=== PATIENT | female | born 2000 | race Caucasian/White ===

== ENCOUNTER 2021-07-12 18:35 | Emergency (ER) | payer OTHER, SELFPAY ==
--- NOTE | 2021-07-12 18:49 | XR_ITS ---
PROCEDURE INFORMATION: Exam: XR Left Ankle Exam date and time: 07/12/21 06:50 PM Age: 21 years old Clinical indication: Pain; Ankle; Left; Additional info: Skateboarding accident TECHNIQUE: Imaging protocol: XR Left ankle. Views: 3 or more views. COMPARISON: No relevant prior studies available. FINDINGS: Bones/joints: Nondisplaced fracture of the low fibula. Nondisplaced fracture of the posterior malleolus. Soft tissues: Soft tissue swelling over both the medial and lateral malleoli. IMPRESSION: 1. Nondisplaced fracture of the low fibula. 2. Nondisplaced fracture of the posterior malleolus. 3. Prominent soft tissue swelling of the entire ankle.
[2021-07-12 19:05] VITALS: BP 105/58; PULSE 80; RESP 20; TEMP 36.7; O2SAT 100; BMI 19.2
--- NOTE | 2021-07-12 19:59 | HMH.EDUTC ---
[facility] [place] Disposition Clinical Impression: Ankle fracture, left Qualifiers: Encounter type: initial encounter Fracture type: closed Qualified Code(s): S82.892A - Other fracture of left lower leg, initial encounter for closed fracture Disposition: Home, Self-Care Condition on Discharge: Good Instructions: How to Use Crutches, Ankle Fracture, DI for Ankle Fracture, How To Perform RICE (Rest, Ice, Compress, Elevate) Additional Instructions: No weight bearing *RICE, Rest the extremity, Ice 15-20 minutes 3-4 times daily, Compress- wear the danita wrap as discussed as much as possible to help reduce swelling and pain, Elevate the extremity when at rest *Orthoglass splint is for support and help control swelling, Be sure that is not to tight but not to loose either *Elevate when resting *Ibuprofen 600mg every 6-8 hours as needed for pain an inflammation. If need something more can take Tylenol in between doses of Ibuprofen to help Immediately follow up with your family doctor for new or worsening of symptoms, or no noticeable improvement over the next 3-5 days Call Orthopedics office in the morning and ask for appointment on 07/13/[address] Buenrostro with [facility] for [facility] and then follow further instructions per Orthopedic office Return if needed Straight to ER if any life threatening symptoms Prescriptions: Ibuprofen [Ibuprofen 600mg Tablet] 600 mg PO Q6HP PRN #20 tab PRN Reason: Moderate Pain Transmission Status: Pending to [id number] Referrals: Provider,MD Kizzy [Primary Care Provider] - As needed Jelani Buenrostro JR, MD [Physician] - (Call office in the morning for appointment request same day appointment with [facility] then follow up as directed) Forms: Work/School Release Time of Disposition: 20:26 Medical Decision Making - Familia Inquiry Pt receiving controlled substance: No Familia was queried for this patient: No Vital Signs: 07/12/21 19:05 07/12/21 20:13 Temperature 98.0 F 98.0 F Temperature Source Oral Pulse Rate 80 Pulse Rate [Left Brachial] 80 Respiratory Rate 20 20 Blood Pressure 105/58 L Blood Pressure [Left Arm] 105/58 L Blood Pressure Mean [Left Arm] 73 Blood Pressure Source [Left Arm] Automatic Cuff Blood Pressure Position [Left Arm] Sitting 02 Sat by Pulse Oximetry 100 Oxygen Delivery Method Room Air - Lab Data Lab Results 07/12/21 20:15: Tst Clinic Negative - Radiology Data #1 Image(s): Ankle Image Reviewed: Yes I have reviewed radiologist's interpretation IMPRESSION: 1. Nondisplaced fracture of the low fibula. 2. Nondisplaced fracture of the posterior malleolus. 3. Prominent soft tissue swelling of the entire ankle. - Physician Consults Physician Consulted: Dr Buenrostro Time: 20:00 Reason -: Orthopedic Eval/Care Comment/Response: Spoke with Dr Buenrostro he advised short leg splint, crutches and follow up in the office tomorrow with [facility] for CT and they will discuss further with her tomorrow [facility] [place] HPI - General Stated complaint: AO 07/12@1700 fellInjrued L ankle Time Seen by Provider: 07/12/21 19:40 Mode of Arrival: Ambulatory Source of Information: Patient Limitations: No Limitations Description of Symptoms (Recalled from Triage Doc. by RN): PATIENT C/O INJURY TO LEFT ANKLE AFTER FALLING WHILE SKATEBOARDING TODAY. SWELLING NOTED TO AREA HEENT Symptoms (Recalled from RN notes): No Resp Symptoms (Recalled from RN notes): No Skin Symptoms (Recalled from RN notes): No MS Symptoms (Recalled from RN notes): Yes Functional Status (Recalled from RN notes): WNL - History of Present Illness Provider Complaint: Patient state that she was skateboarding earlier when she fell and bended her foot and ankle behind her States that she felt a pop and has been having pain with movement and swelling ever since Denies any other injury denies numbness able to move toes - Related Data Previous Rx's Medication Instructions Recorded Ibuprofen
[2021-07-12 20:13] VITALS: BP 105/58; PULSE 80; RESP 20; TEMP 36.7; O2SAT 100
[2021-07-12 20:21] LABS: UTC Pregnancy Test, Urine Negative (Negative)
== END 2021-07-12 20:36 | disposition home or self-care (01) ==
PROVIDERS: Emergency Provider Nurse Practitioner
DX: S82.892A Other fracture of left lower leg, initial encounter for closed fracture (principal); V00.131A Fall from skateboard, initial encounter
CPT/HCPCS: 73610; 81025; 99212; G0463

== ENCOUNTER → 2021-07-13 13:48 | Outpatient (CLI) | payer OTHER, SELFPAY ==
--- NOTE | 2021-07-13 14:00 | CT_ITS ---
FINAL REPORT CLINICAL HISTORY: LEFT ANKLE FX FINDINGS: CT LEFT ANKLE WITHOUT CONTRAST Technique: Axial images through the left ankle were performed by computed tomography. Sagittal and coronal reconstruction images were performed. This study was performed with techniques to keep radiation doses as low as reasonably achievable (ALARA). Individualized dose reduction techniques using automated exposure control or adjustment of mA and/or kV according to the patient's size were employed. There is a mildly displaced lateral malleolar fracture. There is posterior dislocation of the distal fragment of approximately 2 mm. There is a minimally displaced posterior malleolar fracture with offset at the articular surface approximately 1-2 mm. A tiny calcification adjacent to the medial talus could represent a small avulsion from the talus. The talar dome is intact. There is widening of the medial ankle mortise. There is significant soft tissue edema. A small joint effusion is present. IMPRESSION: Fractures of the posterior and lateral malleoli as described. Widening of the medial ankle mortise suggesting ligamentous abnormality. Reviewed, Interpreted and Dictated by Jayde Mcfarland MD Transcribed by Dannie Thomas Authenticated by Jayde Mcfarland MD on 07/13/2021 04:53:03 PM [facility]
[2021-07-13 17:40] LABS: Basophils # 0.3 K/mm3 (0-0.2); Basophils % 3.7 % (0.1-2.0); Eosinophils # 0.2 K/mm3 (0.0-0.4); Eosinophils % 1.9 % (0.1-12.0); Hemoglobin 13.1 g/dL (12.2-16.2); Lymphocytes # 1.4 K/mm3 (0.7-4.5); Lymphocytes % 15.1 % (10-50); Mean Corpuscular HGB Conc 34.4 g/dL (31.8-35.4); Mean Corpuscular Hemoglobin 31.3 pg (27.0-31.2); Mean Corpuscular Volume 91.1 fl (81-99); Mean Platelet Volume 9.4 fl (7.4-10.4); Monocytes # 0.7 K/mm3 (0.1-1.0); Monocytes % 7.3 % (1.7-9.3); Neutrophils # 6.7 K/mm3 (1.8-7.8); Neutrophils % 72.1 % (37.0-80.0); Platelet Count 369 K/mm3 (142-424); Red Blood Count 4.17 M/mm3 (4.20-5.40); Red Cell Distribution Width 12.7 % (11.5-17.5); White Blood Count 9.3 K/mm3 (4.5-13.0)
[2021-07-13 17:51] LABS: Alanine Aminotransferase 26 U/L (12-78); Albumin Level 3.9 g/dl (3.5-5.0); Albumin/Globulin Ratio 1.8 (1.1-1.8); Alkaline Phosphatase 85 U/L (38-126); Anion Gap 12.1 mEq/L (5-15); Aspartate Amino Transferase 29 U/L (14-36); Blood Urea Nitrogen 10 mg/dl (7-17); Calcium 8.7 mg/dl (8.4-10.2); Carbon Dioxide 29 mmol/L (22.0-30.0); Chloride 105 mmol/L (98-107); Estimated Glomerular Filt Rate 91 ml/min (>60); GFR (African American) 111 ML/MIN (>60); Globulin 2.2 g/dL (1.3-3.2); Glucose 92 mg/dl (74-100); Potassium 4.1 mmoL/L (3.5-5.1); Sodium 142 mmol/L (136-145); Total Protein,Serum 6.1 g/dl (6.3-8.2)
[2021-07-13 17:57] LABS: Bilirubin,Total < 0.1 mg/dl (0.2-1.3)
[2021-07-13 17:58] LABS: HCG Qualitative, Serum Negative (Negative)
== END ==
PROVIDERS: Physician Assistant Surgical; Visit Provider Orthopaedic Surgery
DX: Z01.818 Encounter for other preprocedural examination (principal); Z20.822 Contact with and (suspected) exposure to COVID-19; S82.892A Other fracture of left lower leg, initial encounter for closed fracture
CPT/HCPCS: 73700; 80053; 84703; 85025; C9803; U0003; U0005

== ENCOUNTER 2021-07-15 12:50 | Day surgery (SDC) | payer OTHER, SELFPAY ==
[2021-07-15] VITALS (11 sets, daily range): BP systolic 103–130; BP diastolic 62–75; PULSE 66–107; RESP 16–18; TEMP 36.6–43; O2SAT 98–99; BMI 19.2
--- NOTE | 2021-07-15 15:10 | HMH.ORTHHP ---
*Admission Date: 07/15/21 *Reason for consult:: left ankle fracture *History of present illness: 21-year-old female was skateboarding at the [employer] on Sunday, fell, externally rotated her left ankle, complained of immediate pain and difficulty ambulating. Says she feels like her ankle dislocated and spontaneously reduced. She showed me a video of the incident, and it looks like her foot was turned roughly 90 degrees relative to the axis of the tibia. She was seen in the urgent treatment center and subsequently was seen by Rochelle Og PA-C in our clinic earlier this week. I was able to remotely review the images, and tentatively recommended operative fixation. I saw her again this afternoon in preoperative holding. Minimal pain. She is quite active, likes to skateboard and exercise. 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 [facility] History Medical History: Reports:: Seizures (1 YEAR AGO) Denies:: Cancer, Diabetes Mellitus Type 1, Diabetes Mellitus Type 2, Internal Pacemaker, MRSA *Have you ever received a pneumonia vaccine?: No *Have you received a flu vaccine this season?: No Other Medical History: Denies: Blood Transfusion Reaction Other Surgeries: No: Pacemaker Amputation: No Fractures: No - *Social History Last grade of school completed: High school graduate Smoking Status: Current every day smoker Tobacco Type: cigarettes, e-cigarettes # Packs/Day (cigarettes): 1 Alcohol Intake: current Alcohol Intake Frequency:: holidays/special occasions only Substance Use Type: marijuana Last Used Substance: days (ago) *Occupational Status:: employed Housing: house Household Members: family *Travel in the last 8 weeks: None Family Hx:: Anemia, Cancer, Coronary Artery Disease, Diabetes, Heart Attack, Hyperlipidemia, Hypertension, Stroke, Thyroid Disorder Review of Systems - Review of Systems Review of systems:: pertinent systems reviewed and negative unless documented below - *Cardiovascular Denies chest pain, Denies shortness of breath with activity - *Respiratory Denies chest congestion, Denies cough, Denies shortness of breath - *Gastrointestinal Denies abdominal pain, Denies change in bowel habits - *Genitourinary Denies abnormal periods, Denies difficulty urinating - *Musculoskeletal Reports abnormal walking, Reports joint pain, Reports joint swelling - *Neurologic Denies abnormal walking, Denies abnormal movements Meds Home Medications Medication Instructions Recorded Confirmed Type Ibuprofen [Ibuprofen 600mg 600 mg PO Q6HP PRN #20 tab 07/12/21 07/15/21 Rx Tablet] Allergies Allergy/AdvReac Type Severity Reaction Status Date / Time ketamine Allergy Severe Other Verified 07/15/21 13:39 chlorhexidine Allergy Verified 07/15/21 13:06 Exam Vital signs and Labs for Last 24 Hours: Temp Pulse Resp BP Pulse Ox 98.0 F 66 18 103/62 L 99 07/15/21 13:10 07/15/21 13:10 07/15/21 13:10 07/15/21 13:10 07/15/21 13:10 I & O for Last 24 hours: Intake & Output 07/12/21 07/13/21 07/14/21 07/15/21 23:59 23:59 23:59 23:59 Weight 130 lb - Constitutional no acute distress - *Routine HEENT Exam Head: Present: normocephalic Eye: Present: EOMI, PERRL ENT: Present: mucous membranes moist - *Routine Neck Exam Present: supple. Absent: lymphadenopathy - *Routine Respiratory Exam Present: CTA bilaterally - *Routine Cardiovascular Exam Present: RRR - *Routine Abdominal Exam Present: soft, normoactive bowel sounds. Absent: tenderness - *Routine Rectal Exam Rectal:: deferred - *Routine Genitalia Exam Genitalia:: deferred - *Routine Extremities Exam Absent: cyanosis, clubbing, edema - *Routine Skin Exam Present: warm. Absent: rash - *Routine Neurological Exam Present: alert, oriented X3 - Detailed Lower Extremity Exam Ankle: Left swelling (Ankle with diffuse swelling, ecchymosis medially and laterally. She has no fractur
--- NOTE | 2021-07-15 15:21 | P.PN_ITS ---
[facility] Anesthesia Checklist - Patient Identification Patient Identification: Arm Band, Family - Structural Data Admitted From: Home Planned Operative Procedure/s: ORIF Left Ankle Consent for Planned Operative Procedure(s) Verified: Yes Verified Documents: Surgical Consent, History and Physical - NPO Status Verified Time NPO: 00:00 - Additional verifications Anesthesia Reactions: Yes (KETAMINE) Hx Blood Transfusions: No Blood Transfusion Reaction: No - Airway Assessment C-Spine Mobility Assessed: Yes (mp2) TMJ Mobility Assessed: Yes Dentition: Good Dentition - Neurological Assessment Level of Consciousness: Awake, Alert - Anesthesia Plan Anesthesia Risk discussed: Yes Anesthesia Plan: Verified ASA Class: II Anesthesia Type: General w/block (Popliteal/Saphenous per surgeon request. Risks/benefits of nerve block explained. Pt verbalized understanding) [facility] History Medical History: Reports:: Seizures (1 YEAR AGO) Denies:: Cancer, Diabetes Mellitus Type 1, Diabetes Mellitus Type 2, Internal Pacemaker, MRSA *Have you ever received a pneumonia vaccine?: No *Have you received a flu vaccine this season?: No Other Medical History: Denies: Blood Transfusion Reaction Anesthesia experience/problems:: nac Other Surgeries: Yes: Other. No: Pacemaker Amputation: No Fractures: No - *Social History Last grade of school completed: High school graduate Smoking Status: Current every day smoker Tobacco Type: cigarettes, e-cigarettes # Packs/Day (cigarettes): 1 Alcohol Intake: current Alcohol Intake Frequency:: holidays/special occasions only Substance Use Type: marijuana Last Used Substance: days (ago) *Occupational Status:: employed Housing: house Household Members: family *Travel in the last 8 weeks: None Family Hx:: Anemia, Cancer, Coronary Artery Disease, Diabetes, Heart Attack, Hyperlipidemia, Hypertension, Stroke, Thyroid Disorder
--- NOTE | 2021-07-15 16:33 | XR_ITS ---
PROCEDURE INFORMATION: Exam: XR Left Ankle Exam date and time: 07/15/2021 4:30 PM Age: 21 years old Clinical indication: Device placement; Joint fixation hardware; Additional info: Orif left ankle using c arm TECHNIQUE: Imaging protocol: XR Left ankle. Views: 3 or more views. Ten portable C-arm images are received, performed during ORIF of the distal left fibular fracture, including AP, oblique and lateral projections. I was not present at the time of fluoroscopy and imaging. COMPARISON: CT ANKLE LT WO CON 07/13/2021 2:03 PM FINDINGS: Bones/joints: Serial images show placement of fixation plate and 8 screws with near anatomic alignment of a distal left fibular fracture. A distal tibial-fibular arthrodesis was performed with a fixation screw traversing the distal fibular and tibial metaphyses, with satisfactory alignment. A minimally displaced posterior malleolar fracture of the tibia again noted. Talus appears grossly intact. Normal alignment at the ankle joint. Soft tissues: Periarticular swelling and intraoperative findings. IMPRESSION: Satisfactory alignment post ORIF of distal fibular fracture, and distal tibial-fibular arthrodesis.
--- NOTE | 2021-07-15 17:10 | P.PN_ITS ---
[facility] Anesthesia Record Part I Intake, IV Amount: 1,000 Estimated blood loss (mL): 10 Urine output (mL): 0 Blood Pressure: 121/73 SaO2: 98 Pulse Rate: 105 Respiratory Rate: 16 Temperature: 98 F Patient is:: Drowsy, Stable Stable to PACU at:: 17:05
--- NOTE | 2021-07-15 17:15 | HMH.OPNOTE ---
Date of procedure: 07/15/21 Pre-op Diagnosis:: Left lateral malleolus fracture / posterior malleolus fracture. Post-op Diagnosis:: Left lateral malleolus fracture / posterior malleolus fracture, acute syndesmotic / deltoid disruption. Procedure performed:: 80263: Open reduction internal fixation left distal fibula fracture 04108: Fluoroscopic stress exam left ankle 19496: Open treatment left ankle syndesmosis with internal fixation 10485: Primary repair left ankle deltoid ligament Surgeon:: Jelani Buenrostro JR, MD PRODUCT SAFETY LEAD:: Fred Peña Anesthesia: GETA, regional Estimated blood loss (mL): 5 Operative findings:: Fluoroscopic stress examination following fibular fixation demonstrated greater than 10 degrees of medial talar tilt with medial joint space widening consistent with syndesmotic and deltoid disruption. Repeat fluoroscopic examination demonstrated no medial talar tilt, no medial joint space widening following repair. Operative note:: 21-year-old female with left ankle fracture sustained earlier this week as a result of a skateboarding injury. I had a discussion with her regarding further management including nonoperative treatment versus operative intervention. Counseled her that open reduction internal fixation would likely give her better alignment of the ankle mortise with lower likelihood of long-term arthritis at the risk of the risk inherent with surgery. Given her good overall functional status and instability of her ankle fracture, she preferred open reduction internal fixation. I discussed with her the relatively high likelihood of a syndesmotic and deltoid injury given her injury mechanism and imaging findings. I counseled her that I would plan to perform stress fluoroscopic exam of her ankle and determine at the time of surgery whether she needed syndesmotic and deltoid repair. She is amenable with the plan. Plan for open reduction internal fixation left ankle fracture, possible syndesmotic and deltoid repair. We discussed the risk and benefits of surgery. Risks included but were not limited to pain, bleeding, infection, damage to adjacent structures, need for further surgery, wound healing complications, nonunion malunion, post-traumatic arthritis, loss of limb, . Patient expressed verbal consent and written consent was obtained for the above procedure. Patient was identified in preoperative holding. Operative site was marked in indelible ink. History, physical, consent were reviewed and updated. Patient was surrendered to the anesthesia team, taken to the operative suite, placed supine on a well-padded operative table. Ipsilateral hip bump was placed as was a nonsterile thigh tourniquet. Anesthesia was induced. The operative extremity was prepped and draped in the usual sterile fashion. The operative team donned sterile gowns and gloves and a timeout was called. All in attendance agreed regarding the patient's identity, procedure, operative site. Weight-based dose of antibiotics was given prior to incision. I elevated and exanguinated the left lower extremity with an Esmarch bandage and the tourniquet was inflated to 250 mmHg. I made a longitudinal incision laterally over the fibula. I dissected through skin and subcutaneous tissue with care taken to avoid injuring the superficial peroneal nerve. Identified the fibula fracture, removed interposed hematoma and periosteum. I obtained provisional reduction using lobster-claw clamps, then placed a 2.7 mm lag screw by technique. I then placed a precontoured fibular plate in neutralization fashion with locking screws proximal and distal to the fracture. At this point, I performed a fluoroscopic stress exam of the ankle, noted medial joint space widening as well as greater than 10 degrees of medial talar tilt, suggestive of both deltoid and syndesmotic injury. I made a medial incision over the medial malleolus, dissected through skin and subcutaneous tissue with care t
--- NOTE | 2021-07-15 18:16 | P.PN_ITS ---
[facility] Anesthesia Record Part II Discharge Time: 17:35 Destination: Surgical Day Care (OP Surgery) PACU nurse assessment reviewed?: Yes Patient Condition:: Good Anesthesia Complications:: None Swallowing reflex intact?: Yes Cyanosis?: No Blood Pressure: 117/68 Pulse Rate: 69 Temperature: 97.9 F Mental Status: Alert & Oriented Pain level:: 0 Nausea and/or vomitting:: None Intake, IV Amount: 0
== END 2021-07-15 18:06 | disposition home or self-care (01) ==
LOC: OR 12:53
PROVIDERS: Visit Provider Orthopaedic Surgery
PROC: (CPT 27792; principal; 2021-07-15 13:45)
DX: S82.842A Displaced bimalleolar fracture of left lower leg, initial encounter for closed fracture (principal); V00.131A Fall from skateboard, initial encounter; Y92.480 Sidewalk as the place of occurrence of the external cause; S93.422A Sprain of deltoid ligament of left ankle, initial encounter
CPT/HCPCS: 27792; 27829; 27695; 73600; 76000; 96374; C1713; C1776; J2405

== ENCOUNTER → 2021-07-29 12:13 | Outpatient (CLI) | payer BC, OTHER, SELFPAY ==
--- NOTE | 2021-07-29 12:20 | XR_ITS ---
FINAL REPORT CLINICAL HISTORY: ankle fracture--splint not removed per physician-- pt s hiekded with lead apron COMPARISON: 07/12/2021 FINDINGS: LEFT ANKLE Three views demonstrate interval ORIF of the distal left tibial and fibular fractures with a screw plate and multiple screws. A cast is present and obscures detail. IMPRESSION: Changes of ORIF at the distal left tibial and fibular fractures with screw plate multiple screws. Reviewed, Interpreted and Dictated by Juarez Azevedo III, MD Transcribed by Emily Phillips Authenticated and [facility]
== END ==
PROVIDERS: Visit Provider Orthopaedic Surgery
DX: S82.892A Other fracture of left lower leg, initial encounter for closed fracture (principal)
CPT/HCPCS: 73610

== ENCOUNTER 2021-07-29 14:25 | Outpatient (RCR) | payer OTHER, BC, SELFPAY | END 2021-07-29 15:30 | disposition home or self-care (01) | LOC: PT 14:25 | PROVIDERS: Visit Provider Orthopaedic Surgery | DX: S82.892D Other fracture of left lower leg, subsequent encounter for closed fracture with routine healing (principal) | CPT/HCPCS: 97760 ==

== ENCOUNTER → 2021-08-26 10:31 | Outpatient (CLI) | payer OTHER, BC, SELFPAY ==
--- NOTE | 2021-08-26 10:35 | XR_ITS ---
FINAL REPORT CLINICAL HISTORY: ankle fracture COMPARISON: July 29, 2021 FINDINGS: LEFT ANKLE: Three views of the left ankle were obtained. There is a fracture of the distal fibula with a screw plate and multiple screws. The joint spaces and mortise are intact. There is no soft tissue abnormality. IMPRESSION: Distal fibula fracture secured by a screw plate and multiple screws. Reviewed, Interpreted and Dictated by Juarez Azevedo III, MD Transcribed by Dannie Thomas Authenticated and . [facility]
== END ==
PROVIDERS: Visit Provider Orthopaedic Surgery
DX: S82.892A Other fracture of left lower leg, initial encounter for closed fracture (principal)
CPT/HCPCS: 73610

== ENCOUNTER → 2021-09-16 12:03 | Outpatient (CLI) | payer OTHER, BC, SELFPAY ==
--- NOTE | 2021-09-16 12:07 | XR_ITS ---
FINAL REPORT CLINICAL HISTORY: ankle fracture follow-up COMPARISON: 08/26/2021 FINDINGS: AP, oblique, and lateral views of the left ankle were obtained. Again seen are postoperative changes from ORIF of the lateral malleolus. The hardware is intact and unchanged. There has been interval healing of the previously seen fracture. There is mild osteopenia. Soft tissues are without abnormality. IMPRESSION: Stable postoperative changes with interval healing of the previously seen fracture. Reviewed, Interpreted and Dictated by Jayde Mcfarland MD Transcribed by Emily Phillips Authenticated and [facility]
== END ==
PROVIDERS: Visit Provider Orthopaedic Surgery
DX: S82.892A Other fracture of left lower leg, initial encounter for closed fracture (principal)
CPT/HCPCS: 73610

== ENCOUNTER 2021-09-16 14:08 | Outpatient (RCR) | payer OTHER, BC, SELFPAY | END 2021-09-16 15:00 | disposition home or self-care (01) | LOC: PT 14:08 | PROVIDERS: Visit Provider Orthopaedic Surgery | DX: S82.892D Other fracture of left lower leg, subsequent encounter for closed fracture with routine healing (principal) | CPT/HCPCS: 97760 ==

== ENCOUNTER 2021-10-04 13:30 | Outpatient (RCR) | payer OTHER, BC, SELFPAY ==
--- NOTE | 2021-09-09 12:01 | HMH.PTOPEV ---
PT Outpatient Evaluation Rehab PT Outpatient Evaluation Start: 09/09/21 11:23 Freq: Status: Active Protocol: Document 09/09/21 11:23 ROSA ISELA (Rec: 09/09/21 12:01 ROSA ISELA [id number]) Electronically Signed By Tushar Galarza, PT 09/09/21 11:23 Outpatient Therapy Subjective History Subjective History Pt presents s/p left ankle fx/ ORIF (distal fib, deltoid lig repair), skateboarding injury on 07/12/21, sx. followed on . Pt reports normal post- op swelling, weakness, soreness, and stifness. Pt reports left ankle s/s have improved recently w/ progressing activities. Chief Complaint Pain,Stiff,Swelling,Weakness Symptom Type Ache,Dull Symptoms Relieved By Rest/Positioning Symptoms Aggravated By Standing,Physical Activity, Walking Prior Functional Limitations None Current Functional Limitations Standing,Walking,Stairs Symptom Description Intermittent Level of pain today (0-10) 0 Pain scale - at its best (0-10) 0 Pain scale - at its worst (0-10) 6 Ankle/Foot Eval Gait Observation General Gait Pattern Observation Antalgic Gait,Decrease Weight Bear (L),Decrease Stride Lngth (L) Assistive Device Ambulation Assistive Device Axillary Crutches Palpation Tenderness left Ankle/Foot Palpation Overall Comment medial sx. incision 2-3/4, lateral sx. incision 2-3/4 ROM Ankle/Foot Dorsiflexion w/Knee Extended 0 Active Range Motion (degrees) Ankle/Foot Plantar Flexion Active Range 0-35 of Motion (degrees) Ankle/Foot Eversion Active Range of 0-8 Motion (degrees) Ankle/Foot Inversion Active Range of 0-22 Motion (degrees) MMT Ankle Dorsiflexion Strength Grade 4- Good- Ankle Plantarflexion Strength Grade 4- Good- Foot Eversion Strength Grade 3+ Fair+ Foot Inversion Strength Grade 3+ Fair+ Outpatient Therapy Assessment Impairments Problems/Impairmments Palpation Tenderness,Impaired Range of Motion,Impaired Strength,Impaired Gait Pattern ,Impaired Walking,Impaired Standing,Impaired Stair Climbing,Increased Edema, Subjective C/O Pain,Impaired Self Care/Self Management Prognosis Rehab Potential Good Clinical Impression Consistent with Diagnosis Yes
== END 2021-10-04 13:35 | disposition home or self-care (01) ==
LOC: PT 13:30
PROVIDERS: Visit Provider Orthopaedic Surgery
DX: S82.892D Other fracture of left lower leg, subsequent encounter for closed fracture with routine healing (principal)
CPT/HCPCS: 97014; 97016; 97110; 97140; 97163; G0283

== ENCOUNTER → 2021-10-14 13:59 | Outpatient (CLI) | payer BC, OTHER, SELFPAY ==
--- NOTE | 2021-10-14 14:03 | XR_ITS ---
FINAL REPORT CLINICAL HISTORY: ORIF ankle F/U COMPARISON: September 16, 2021 FINDINGS: LEFT ANKLE Three views demonstrate no acute fracture or dislocation. There is a side plate and screws securing a healing fracture of the distal fibula. The mortise is intact. The soft tissues are unremarkable. IMPRESSION: Postoperative changes with no acute bony abnormality. Reviewed, Interpreted and Dictated by Norman Nelson MD Transcribed by Kandice Rosas Authenticated and [facility]
== END ==
PROVIDERS: Visit Provider Orthopaedic Surgery
DX: S82.892A Other fracture of left lower leg, initial encounter for closed fracture (principal)
CPT/HCPCS: 73610